=== PATIENT | male | born 1950 | race Caucasian/White ===

== ENCOUNTER 2019-06-30 17:43 | Inpatient (IN) | payer MEDICARE ==
[~2019-06-30] VITALS: Ht 172.7 cm; Wt 83.5 kg
[~2019-06-30 17:43] MED LIST: ASPIR 8181 MG PO; CLARITIN10 MG PO; CYCLOBENZAPRINE5 MG PO; FLONASE16 GM NS; GLUCOPHAGE500 MG PO; HYDROCHLOROTHIA25 MG PO; JANUVIA50 MG PO; LIPITOR40 MG PO; LISINOPRIL10 MG PO; PEPCID40 MG PO; ULTRAM50 MG PO; XARELTO20 MG PO
[2019-06-30] MEDS ORDERED: ASPIRIN 81 MG CHEW TAB PO ONE (18:30)
[2019-06-30 18:35] LABS: BASOPHILS % 0.2 % (0.0-1.0); EOSINOPHILS # (AUTO) 0.1 (0.0-0.4); EOSINOPHILS % 1.2 % (0.0-6.0); HEMATOCRIT 32.7 % (38.2-49.6); HEMOGLOBIN 11.6 g/dL (14.0-18.0); LYMPHOCYTES # (AUTO) 1.9 (1.0-3.2); LYMPHOCYTES % 22.6 % (18.0-39.1); MEAN CORPUSCULAR HEMOGLOBIN 33.5 pg (28-32); MEAN CORPUSCULAR HGB CONC 35.5 g/dL (31-35); MEAN CORPUSCULAR VOLUME 94.5 fL (81-99); MONOCYTES # (AUTO) 0.7 (0.2-0.8); MONOCYTES % 7.9 % (4.4-11.3); NEUTROPHILS # (AUTO) 5.7 (2.1-6.9); NEUTROPHILS % 67.6 % (38.7-80.0); PLATELET COUNT 124 x10e3/uL (140-360); RED BLOOD COUNT 3.46 x10e6/uL (4.3-5.7); RED CELL DISTRIBUTION WIDTH 12.1 % (11.7-14.4)
--- NOTE | 2019-06-30 18:35 | Diagnostic Imaging Report ---
EXAMINATION: CHEST SINGLE (PORTABLE) INDICATION: CHEST PAIN COMPARISON: None FINDINGS: AP view TUBES and LINES: None. LUNGS: Lungs are well inflated. Left basilar scarring/atelectasis. There is no evidence of pneumonia or pulmonary edema. PLEURA: No pleural effusion or pneumothorax. HEART AND MEDIASTINUM: The cardiomediastinal silhouette is unremarkable. BONES AND SOFT TISSUES: No acute osseous lesion. Soft tissues are unremarkable. UPPER ABDOMEN: No free air under the diaphragm. IMPRESSION: Left basilar scarring/atelectasis otherwise no acute thoracic radiographic abnormality. Signed by: Carlyle Darling DO on 06/30/2019 6:31 PM
[2019-06-30 18:48] LABS: INR 1.77; PROTHROMBIN TIME 21.3 seconds (11.9-14.5)
[2019-06-30 18:56] LABS: ALANINE AMINOTRANSFERASE 10 IU/L (0-55); ALBUMIN/GLOBULIN RATIO 1.2 (0.8-2.0); ALKALINE PHOSPHATASE 46 IU/L (40-150); ANION GAP 10.2 mmol/L (8-16); BLOOD UREA NITROGEN 65 mg/dL (7-26); BUN/CREATININE RATIO 56 (6-25); CALCIUM 8.6 mg/dL (8.4-10.2); CARBON DIOXIDE 23 mmol/L (22-29); CHLORIDE 109 mmol/L (98-107); CREATINE KINASE 22 IU/L (30-200); CREATININE, SERUM 1.16 mg/dL (0.72-1.25); EST GLOMERULAR FILTRATION RATE > 60 ML/MIN (60-); GLUCOSE 147 mg/dL (74-118); POTASSIUM 4.2 mmol/L (3.5-5.1); SODIUM 138 mmol/L (136-145)
[2019-06-30] MEDS ORDERED: ONDANSETRON HCL INJ 2MG/ML 2ML 2 MG/ML VIAL IV PRN (19:15)
--- NOTE | 2019-06-30 19:20 | NUR ---
Patient received via wheelchair from ER. Admission history obtained. Initial physical assessment conducted. Patient had no complaints of pain. No signs of respiratory distress. Patient oriented to room, call light and plan of care. Fall precautions implemented. Patient instructed to call for assistance when needed. Call light within reach.
--- OUTSIDE RECORDS SUMMARY | 2019-06-30 20:02 | XMS REPORT ---
Author Author [facility] Address Unknown Phone Unavailable Care Team Providers Care In Class Special Education Teacher Name Role Phone DORIAN JAYSON Unavailable Unavailable Problems This patient has no known problems. Allergies, Adverse Reactions, Alerts This patient has no known allergies or adverse reactions. Medications This patient has no known medications. Results Test Description Test Time Test Comments Text Results Atomic Results Result Comments CHEST SINGLE (PORTABLE) 2019-06-30 18:31:00 [place] [address] Patient Name: ARAMIS SHAW MR #: [id number] : 1950 Age/Sex: 68/M Req #: [id number] Adm Physician: Ordered by: JAYSON ALARCON DO Report #: [id number] Location: ER Room/Bed: Procedure: [id number] DX/CHEST SINGLE (PORTABLE) Exam Date: 06/30/19 Exam Time: 1820 REPORT STATUS: Signed EXAMINATION: CHEST SINGLE (PORTABLE) INDIC ATION: CHEST PAIN COMPARISON: None FINDINGS: AP view TUBES and LINES: None. LUNGS: Lungs are well inflated. Left basilar scarring/atelectasis. There is no evidence of pneumonia or pulmonary edema. PLEURA: No pleural effusion or pneumothorax. HEART AND MEDIASTINUM: The cardiomediastinal silhouette is unremarkable. BONES AND SOFT TISSUES: No acute osseous lesion. Soft tissues are unremarkable. UPPER ABDOMEN: No free air under the diaphragm. IMPRESSION: Left basilar scarring/atelectasis otherwise no acute thoracic radiographic abnormality. Signed by: Carlyle Darling DO on 06/30/2019 6:31 PM Dictated By: CARLYLE DARLING DO 30 Transcribed By: BHANU on 06/30/191830 COPY TO: JAYSON ALARCON DO
--- NOTE | 2019-06-30 20:19 | NUR ---
REPORT CALLED. PT TRANSFERRED VIA WC BY NURSE TO ROOM 206 ON TELE #23. PT RUNNING A FIB.
[2019-06-30 20:45] VITALS: BP 110/63
[2019-06-30 21:00] VITALS: BP 110/63
[2019-06-30 21:30] VITALS: BP 110/63
--- NOTE | 2019-06-30 21:39 | NUR ---
Dr. Rae Slainas paged for "Routine Consult". Reason: Chest Pain. Awaiting call back.
[2019-07-01] VITALS (9 sets, daily range): BP systolic 95–116; BP diastolic 57–72
--- NOTE | 2019-07-01 00:34 | NUR ---
Blood specimen sent to lab for analysis of cardiac enzymes.
[2019-07-01 03:36] LABS: CREATINE KINASE MB 1.1 ng/mL (0-5.0)
--- NOTE | 2019-07-01 07:10 | NUR ---
Shift report given to oncoming nurse.
[2019-07-01] MEDS ORDERED: METOPROLOL SUCC25 MG PO (11:06)
[2019-07-01 11:56] LABS: CREATINE KINASE MB 1.4 ng/mL (0-5.0)
--- NOTE | 2019-07-01 12:41 | NUR ---
H&P cc: chest pain HPI: 68yoM, PCP Dr.T. Brown, developed CP on left. Mild dizziness; no sob; last stres test about 5 years ago; smokes 1ppd cigs. PMH: PAF, DM2, HTN, HLD, nicotine dependence, peripherla edema PSHx: none Allergies; see emr Fh/Sh; marrie;d 1ppd cigs; meds; see MAR ROS: no f/c/s/N/V/D/BERGER/vision changes/back pain/skin rash v/s; revd PE tired a ppearing anicteric ns1s2 good bs soft nd; epigastric tenderness no e/t; hyperpigmentation of forelegs skin dry n. affect Nontender chest wall labs/meds; revd A/P: Atypical CP PAF HTN HLD NIcotine dependence PLAN Trend enzymes; check lipids; control BP hba1c/lipids Cont aceI and BB cont xarelto. pepcid dispo: f/u stress test. Chetan Briceño MD, PhD.
[2019-07-01] MEDS ORDERED: TRAMADOL HCL 50 MG TAB PO PRN (12:45)
[2019-07-01 13:22] LABS: CHOL/HDL RATIO 5.8 (3.9-4.7)
[2019-07-01] MEDS ORDERED: NON-FORMULARY MEDICATION (Cyclobenzaprine Hcl (Flexeril) 10 MG) PO SCH (14:00)
[2019-07-01] MEDS: CYCLOBENZAPRINE HCL 10 MG TAB PO SCH ×2 (15:26→22:00)
[2019-07-01] MEDS: RIVAROXABAN 20 MG TABLET PO SCH (18:24)
[2019-07-01] MEDS: METOPROLOL SUCCINATE 25 MG TAB XL PO SCH (18:24)
--- NOTE | 2019-07-01 19:22 | NUR ---
Patient received lying in bed. AAO x 3. No acute distress noted. Call light within reach.
[2019-07-01] MEDS ORDERED: NON-FORMULARY MEDICATION (Atorvastatin Calcium (Lipitor) 40 MG) PO SCH (21:00)
[2019-07-01] MEDS: INSULIN REGULAR, HUMAN 100 UNIT/1 ML 3ML VIAL SQ SCH (21:00)
--- NOTE | 2019-07-01 21:20 | NUR ---
Dr. Briceño paged for insulin sliding scale as patient is a diabetic. New order received for low dose sliding scale (regular insulin).
[2019-07-01] MEDS: ATORVASTATIN 40 MG TAB PO SCH (21:26)
[2019-07-01] MEDS ORDERED: DEXTROSE 50% SYRINGE 50 ML IV PRN (21:30)
[2019-07-02] VITALS (8 sets, daily range): BP systolic 92–143; BP diastolic 53–84
[2019-07-02] MEDS: CYCLOBENZAPRINE HCL 10 MG TAB PO SCH ×3 (05:19→22:13)
--- NOTE | 2019-07-02 07:00 | NUR ---
Walking rounds done. Shift report given to oncoming nurse.
--- NOTE | 2019-07-02 07:26 | NUR ---
IM-progress note O/N no events ROS: no f/c/s/N/V/D/BERGER/vision changes/back pain/skin rash v/s; revd PE tired a ppearing anicteric ns1s2 good bs soft nd; epigastric tenderness no e/t; hyperpigmentation of forelegs skin dry n. affect Nontender chest wall labs/meds; revd A/P: Atypical CP PAF HTN HLD NIcotine dependence PLAN Trend enzymes; check lipids; control BP hba1c/lipids Cont aceI and BB cont xarelto. pepcid dispo: f/u stress test. 07/02/19 Obesity- screen for DM positive, Hba1c/LDL 7.4/68. f/u stress test. Chetan Briceño MD, PhD.
[2019-07-02] MEDS: INSULIN REGULAR, HUMAN 100 UNIT/1 ML 3ML VIAL SQ SCH ×4 (07:30→22:12)
[2019-07-02] MEDS: SITAGLIPTIN 100 MG TAB PO SCH (09:00)
[2019-07-02] MEDS: HYDROCHLOROTHIAZIDE 25 MG TAB PO SCH (09:00)
[2019-07-02] MEDS: LORATADINE 10 MG TAB PO SCH (09:00)
[2019-07-02] MEDS: LISINOPRIL 10 MG TAB PO SCH (09:00)
[2019-07-02] MEDS: ASPIRIN 81 MG CHEW TAB PO SCH (09:00)
[2019-07-02] MEDS: METOPROLOL SUCCINATE 25 MG TAB XL PO SCH ×2 (09:00→16:45)
[2019-07-02] MEDS ORDERED: NON-FORMULARY MEDICATION (Sitagliptin Phosphate (Januvia) 50 MG) PO SCH (09:00)
[2019-07-02] MEDS ORDERED: REGADENOSON 0.4 MG/5 ML SYR IV ONE (09:17)
--- NOTE | 2019-07-02 10:30 | NUR ---
patient alert and oriented. leaving unit via wheelchair to nuclear medicine for stress test at this time.
[2019-07-02] MEDS: RIVAROXABAN 20 MG TABLET PO SCH (16:45)
--- NOTE | 2019-07-02 16:45 | NUR ---
Message left for Dr. Haynes regarding stress test results. Awaiting response.
[2019-07-02] MEDS: ATORVASTATIN 40 MG TAB PO SCH (20:18)
[2019-07-03] VITALS (7 sets, daily range): BP systolic 89–198; BP diastolic 51–80
[2019-07-03] MEDS: CYCLOBENZAPRINE HCL 10 MG TAB PO SCH ×4 (06:10→22:00)
--- NOTE | 2019-07-03 06:40 | NUR ---
walking rounds made with maintenance technician 2nd shift nurse, patient resting comfortably and in no distress. call zhong within reach and bed in lowest position.
[2019-07-03] MEDS: INSULIN REGULAR, HUMAN 100 UNIT/1 ML 3ML VIAL SQ SCH ×4 (07:30→21:00)
[2019-07-03] MEDS: HYDROCHLOROTHIAZIDE 25 MG TAB PO SCH (09:00)
[2019-07-03] MEDS: LORATADINE 10 MG TAB PO SCH (09:00)
[2019-07-03] MEDS: SITAGLIPTIN 100 MG TAB PO SCH (09:00)
[2019-07-03] MEDS: LISINOPRIL 10 MG TAB PO SCH (09:00)
[2019-07-03] MEDS: ASPIRIN 81 MG CHEW TAB PO SCH (09:00)
[2019-07-03] MEDS: METOPROLOL SUCCINATE 25 MG TAB XL PO SCH ×2 (09:00→16:56)
[2019-07-03] MEDS ORDERED: ONDANSETRON HCL 4 MG ORAL DISINTEGRATING TAB PO PRN (10:15)
[2019-07-03] MEDS: RIVAROXABAN 20 MG TABLET PO SCH (16:18)
--- NOTE | 2019-07-03 18:59 | NUR ---
Walking rounds done. Patient sitting up in bed in NAD. He denies CP or SOB. POC discussed. He was reminded he will be NPO after midnight for planned procedure. Patient instructed to call for assistance as needed and verbalized understanding. Call zhong within reach
[2019-07-03] MEDS: ATORVASTATIN 40 MG TAB PO SCH (21:45)
[2019-07-04] VITALS (61 sets, daily range): BP systolic 88–131; BP diastolic 50–96
--- NOTE | 2019-07-04 00:21 | Consultation ---
DATE OF CONSULTATION: Cardiology Consultation REASON FOR CONSULTATION: Chest pain. HISTORY OF PRESENT ILLNESS: This is a 68-year-old man with a history of hypertension, hyperlipidemia, diabetes mellitus, and paroxysmal atrial fibrillation, who presented to the emergency department with chest pain. The patient describes a central chest pain with moderate in intensity, occurred at rest, mildly worsened with exertion. No radiation, no diaphoresis associated with some mild shortness of breath. No other exacerbating or relieving factors. He states he has had a cardiac catheterization many years ago with possible balloon angioplasty. No balloon angioplasty. No recent stenting. Upon arrival here, he was noted to have negative cardiac enzymes and underwent stress testing which showed inferolateral scar with borderzone ischemia. REVIEW OF SYSTEMS: A 12-point review of system was conducted, is negative otherwise stated above in the HPI. PAST MEDICAL HISTORY: As stated above in the HPI. PAST SURGICAL HISTORY: None. Recent cardiac catheterization in remote past. PAST FAMILY HISTORY: Noncontributory. SOCIAL HISTORY: No current illicit drug, alcohol, or tobacco use. ALLERGIES: NO KNOWN DRUG ALLERGIES. MEDICATIONS: See medications reconciliation form. PHYSICAL EXAMINATION: VITAL SIGNS: Temperature is 96.9, heart rate is 81, respirations are 18, blood pressure is 107/62, and oxygen saturation 99% on room air. GENERAL: He is an elderly male seated at bedside in no apparent distress. HEAD: Normocephalic and atraumatic. EYES: Extraocular muscles are intact. Conjunctivae are clear. NECK: No JVD. No bruits. CARDIOVASCULAR: Regular rate and rhythm. No murmurs. LUNGS: Clear to auscultation. ABDOMEN: Soft, nontender, and nondistended. EXTREMITIES: No clubbing, cyanosis, or edema. VASCULAR: Diminished pulses. SKIN: Warm and dry. NEUROLOGIC: No focal deficits noted. LABORATORY DATA: Reviewed. Negative cardiac troponins. Nuclear stress test showed inferolateral scar with worsened ischemia. Echocardiogram showed a low-normal ejection fraction of 50% to 55%, however, it was technically difficult. A 12-lead electrocardiogram showed normal sinus rhythm with inferior and lateral T-wave inversions. IMPRESSION: 1. Abnormal stress test. 2. Abnormal electrocardiogram. 3. Hypertension. 4. Hyperlipidemia. 5. Diabetes mellitus. 6. Peripheral artery disease. 7. Venous stasis dermatitis. RECOMMENDATIONS: The patient presented with chest pain, ruled out for acute myocardial infarction. His ejection fraction was low normal, estimated at 50% to 55%. Nuclear stress test showed inferolateral scar with mild borderzone ischemia. Continue current cardiovascular medications. He will need coronary angiography with possible intervention. Risks, benefits, and alternatives, including that we had no bypass surgery here on site were discussed and he agrees to proceed with the procedure. DO ANN MARIE Gallardo/FELICIA /[id number]
--- NOTE | 2019-07-04 01:34 | NUR ---
therapy technician reported patient's heart rate in 40's. Upon checking on the patient, he was in bed looked pale, diaphoretic and c/o dizziness. patient stated, he had just came back from the bathroom. Patient's tele showing a heart rate ranging from 41-35, BP 81/47. Rapid response called at 0135. ER physician, patient registration supervisor, ICU charge in room. O2 2L NC, and external pacers placed. ordered EKG, to draw labs, NS@150cc/hr x1 liter. Patient remained awake, alert and talkative with staff. 0147- EKG sent to Dr. Haynes by Dr. Roberts. 0148 Dr Roberts spoke to Dr. Gonzales. 0150 BP 135/57, 93 heart rate. Patient is no longer pale or diaphoretic and states he feels better. Patient will keep pacer pads on. Will continue to monitor.
[2019-07-04] MEDS ORDERED: SODIUM CHLORIDE 0.9% 1000ML 1,000 ML ONE ×3 (01:45→14:50)
[2019-07-04 02:08] LABS: BASOPHILS % 0.3 % (0.0-1.0); EOSINOPHILS # (AUTO) 0.2 (0.0-0.4); EOSINOPHILS % 1.9 % (0.0-6.0); HEMATOCRIT 26.3 % (38.2-49.6); HEMOGLOBIN 9.4 g/dL (14.0-18.0); LYMPHOCYTES # (AUTO) 3.2 (1.0-3.2); MEAN CORPUSCULAR HEMOGLOBIN 33.7 pg (28-32); MEAN CORPUSCULAR HGB CONC 35.7 g/dL (31-35); MEAN CORPUSCULAR VOLUME 94.3 fL (81-99); MONOCYTES # (AUTO) 0.7 (0.2-0.8); MONOCYTES % 6.8 % (4.4-11.3); NEUTROPHILS # (AUTO) 5.5 (2.1-6.9); NEUTROPHILS % 57.7 % (38.7-80.0); PLATELET COUNT 155 x10e3/uL (140-360); RED BLOOD COUNT 2.79 x10e6/uL (4.3-5.7); RED CELL DISTRIBUTION WIDTH 12.2 % (11.7-14.4)
[2019-07-04 02:12] LABS: INR 1.18; PROTHROMBIN TIME 15.6 seconds (11.9-14.5)
[2019-07-04 02:13] LABS: PARTIAL THROMBOPLASTIN TIME 26.2 seconds (23.8-35.5)
[2019-07-04 02:20] LABS: ALBUMIN 3.1 g/dL (3.5-5.0); ALBUMIN/GLOBULIN RATIO 1.1 (0.8-2.0); ANION GAP 13.1 mmol/L (8-16); CREATININE, SERUM 1.37 mg/dL (0.72-1.25); POTASSIUM 4.1 mmol/L (3.5-5.1)
[2019-07-04 02:26] LABS: CREATINE KINASE MB 10.2 ng/mL (0-5.0)
--- NOTE | 2019-07-04 02:38 | NUR ---
Lab called regarding elevated troponin 1.832. Dr. Roberts notified. Called answering service for Dr. Haynes, Dr. Jerson Cherry hydro station supervisor but did not pickling drum operator and message left to update on patient
[2019-07-04] MEDS ORDERED: HEPARIN SOD (PORCINE) 5,000 UNIT/ML VIAL IV ONE (02:45)
[2019-07-04] MEDS ORDERED: HEPARIN 25,000 UNIT 900 UNIT in DEXTROSE 5% 250ML 250 ML IV SCH (02:45)
[2019-07-04] MEDS ORDERED: HEPARIN 25,000 UNIT DRIP IV ONE ×2 (03:13→14:50)
[2019-07-04] MEDS: HEPARIN 25,000 UNIT 1,000 UNIT in DEXTROSE 5% 250ML 250 ML IV SCH ×3 (03:20→18:26)
--- NOTE | 2019-07-04 03:20 | NUR ---
Heparin gtt started at 10cc/hr as ordered by and verified with ICU Charge nurse, JAMES Murcia. Patient denies SOB, CP, dizziness or any complaints. Will continue to monitor.
--- NOTE | 2019-07-04 04:00 | NUR ---
Patient is awake in bed without any complaints or distress. Call zhong within reach.
[2019-07-04] MEDS: CYCLOBENZAPRINE HCL 10 MG TAB PO SCH ×3 (04:41→21:08)
[2019-07-04 05:54] LABS: CREATINE KINASE MB 13.7 ng/mL (0-5.0)
--- NOTE | 2019-07-04 06:15 | NUR ---
Dr. Jerson Cherry paged to report elevated Troponin, no answer and message left. Patient without any complaints or distress. Call zhong within reach.
--- NOTE | 2019-07-04 07:03 | NUR ---
Dr. Cherry called back. He was updated on patient condition. Per MD patient needs to go to irrigation laborer with Heparin drip. AM nurse, JAMES Pittman aware. Walking rounds done and report given.
[2019-07-04] MEDS: INSULIN REGULAR, HUMAN 100 UNIT/1 ML 3ML VIAL SQ SCH ×4 (07:30→20:24)
[2019-07-04] MEDS ORDERED: HEPARIN SOD (PORCINE) 1000 UNIT/ML 30ML ONE (08:04)
[2019-07-04] MEDS ORDERED: LIDOCAINE HCL 2% LOCAL 20 ML VIAL ONE ×2 (08:04→10:10)
[2019-07-04] MEDS ORDERED: HEPARIN SOD/SOD CHLORIDE 2,000 ML ONE (08:04)
[2019-07-04] MEDS ORDERED: FENTANYL CITRATE/PF 100MCG/2 ML INJ ONE (08:04)
[2019-07-04] MEDS ORDERED: MIDAZOLAM HCL 2 MG/2 ML VIAL ONE ×2 (08:04→10:11)
[2019-07-04] MEDS ORDERED: IOPAMIDOL 370 MG/ML 200 ML INFUS..BTL INJ ONE (08:04)
[2019-07-04] MEDS ORDERED: NITROGLYCERIN/D5W 200 MCG/ML 250 ML ONE (08:05)
--- NOTE | 2019-07-04 08:59 | NUR ---
IM-progress note O/N no events ROS: no f/c/s/N/V/D/BERGER/vision changes/back pain/skin rash v/s; revd PE tired a ppearing anicteric ns1s2 good bs soft nd; epigastric tenderness no e/t; hyperpigmentation of forelegs skin dry n. affect Nontender chest wall labs/meds; revd A/P: Atypical CP PAF HTN HLD NIcotine dependence PLAN Trend enzymes; check lipids; control BP hba1c/lipids Cont aceI and BB cont xarelto. pepcid dispo: f/u stress test. 07/02/19 Obesity- screen for DM positive, Hba1c/LDL 7.4/68. f/u stress test. 07/03 abnormal stress test; f/u LHC 07/04 LHC= multi vs ds; IABP placed; monitor closely; cct>35mins. Chetan Briceño MD, PhD.
[2019-07-04] MEDS: SITAGLIPTIN 100 MG TAB PO SCH (09:00)
[2019-07-04] MEDS: ASPIRIN 81 MG CHEW TAB PO SCH (09:00)
[2019-07-04] MEDS: HYDROCHLOROTHIAZIDE 25 MG TAB PO SCH (09:00)
[2019-07-04] MEDS: LORATADINE 10 MG TAB PO SCH (09:00)
[2019-07-04] MEDS: METOPROLOL SUCCINATE 25 MG TAB XL PO SCH ×3 (09:00→18:29)
[2019-07-04] MEDS: LISINOPRIL 10 MG TAB PO SCH (09:00)
[2019-07-04] MEDS ORDERED: VERAPAMIL HCL 2.5 MG/ML 2 ML VIAL ONE (09:16)
[2019-07-04] MEDS ORDERED: ATROPINE SULFATE 0.1 MG/ML 10ML SYR ONE (09:38)
[2019-07-04] MEDS ORDERED: HEPARIN SOD/SOD CHLORIDE 1,000 ML ONE (10:07)
--- NOTE | 2019-07-04 12:00 | NUR ---
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 Donnie RAMIREZ bedside nurse in attendance. She phoned status report to ICU staff. Balloon remains in rt groin NO gross issues pain,pallor,pressure. 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 Site w/o s/s infiltration. Rt ballon in rt leg mobilizer. Pt was transfered to Icu [id number] in attendance an Z[facility]. Handoff completed by Donnie RAMIREZ. Patient back to baseline orientation. Remain variable Atrial fib. Voided x1 and has no c/o discomfort. Family and [facility] floor staff notified of transfer.mendez/james
[2019-07-04 14:54] LABS: CREATINE KINASE MB 18.7 ng/mL (0-5.0)
--- NOTE | 2019-07-04 16:27 | Operative Report ---
DATE OF PROCEDURE: SURGEON: Casey Haynes DO PROCEDURES PERFORMED: 1. Conscious sedation 60 minutes. 2. Selective coronary angiography x3. 3. Ultrasound-guided arterial access. 4. Ultrasound-guided venous access. 5. Insertion of an intra-aortic balloon pump. 6. Insertion of a central venous catheter. PREPROCEDURE DIAGNOSES: 1. Abnormal stress test. 2. Atrial fibrillation with slow ventricular response. POSTPROCEDURE DIAGNOSES: 1. Multivessel coronary artery disease. 2. Hypotension. 3. Bradycardia. ESTIMATED BLOOD LOSS: Less than 20 mL. SPECIMENS REMOVED: None. PROCEDURE IN DETAIL: After informed consent was obtained, the patient was brought to the cardiac catheterization laboratory in a fasting and nonsedated state. Bilateral groins and right wrist were prepped and draped in usual sterile fashion. A 2% lidocaine was instilled into the right wrist for local anesthesia. Using a micropuncture needle, the right radial artery was accessed via the modified Seldinger technique and a 5-6 slender sheath was placed. Next, diagnostic coronary angiography x3 was performed using a TIG catheter. This was subsequently removed over the wire. Hemostasis was achieved via TR band. The patient became bradycardic and hypotensive throughout the procedure, requiring atropine and dopamine infusion. Next, using ultrasound guidance, I gained access into the right common femoral artery and inserted a 50 mL intra-aortic balloon pump and was started on one-to-one counterpulsation. Next, using ultrasound guidance, I placed a central venous catheter in the right internal jugular vein. The patient tolerated the procedure well with no immediate complications, transferred back to the Intensive Care Unit in guarded condition. PROCEDURAL FINDINGS: 1. The ostial left main is patent. The left main then tapers down to a diffuse long 60% stenosis extending into the proximal left anterior descending coronary artery. There is a large first diagonal branch with luminal irregularities. The midportion of the LAD has a severe 90% stenosis with LALITHA-2 flow in the LAD. 2. 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 This vessel is the dominant vessel and provides a left posterior descending coronary artery. This also provides 4 other obtuse marginal vessels, the first of which is a medium caliber vessel. The first obtuse marginal has an ostial subtotal stenosis. Obtuse marginals 2 through 4 are small with luminal irregularities. The left circumflex itself has a subtotal severe stenosis at the takeoff of the first OM. 3. The right coronary artery is a small nondominant vessel and is occluded. The distal portion of the vessel fills via collaterals from the left anterior descending coronary artery system. IMPRESSION: 1. Hypotension. 2. Bradycardia. 3. Multivessel coronary artery disease. 4. Anomalous left circumflex coronary artery. RECOMMENDATIONS: The patient was placed on intra-aortic balloon pump counterpulsation for pressure support with a dopamine infusion. He was found to have severe multivessel coronary artery disease and will be referred for bypass surgery after transfer to the [facility]. DO ANN MARIE Gallardo/MODL /[id number]
--- NOTE | 2019-07-04 16:48 | NUR ---
Received order to initiate transfer to [facility]. Spoke with pt and at bedside. They signed choice letter for [facility]. Signed letter placed on chart. CM called and spoke with Claudette at transfer center to initiate process. Facesheet and H&P faxed to [phone] as requested. Gave CM contact information and ICU's phone number. MOT initiated and placed in front of chart.
[2019-07-04] MEDS: RIVAROXABAN 20 MG TABLET PO SCH (18:13)
--- NOTE | 2019-07-04 18:21 | Progress Note ---
DATE: Cardiology Progress Note SUBJECTIVE: The patient developed near-syncope and bradycardia yesterday evening. Rapid response was called. States that he was dizzy, lightheaded, felt unwell. The patient is currently status post heart catheterization with an intra-aortic balloon pump placed. OBJECTIVE: VITAL SIGNS: Temperature is afebrile, heart rate is 91, respirations are 13, blood pressure is 119/84, oxygen saturation 98% on room air. GENERAL: He is a chronically ill-appearing elderly man, lying comfortably in bed. CARDIOVASCULAR: Irregularly irregular. Normal rate. LUNGS: Diminished breath sounds at bases. ABDOMEN: Soft, nontender, nondistended. Groin has a balloon pump present. EXTREMITIES: Venous stasis dermatitis, diminished pulses. CARDIOVASCULAR MEDICATIONS: Reviewed. He is on dobutamine infusion. LABORATORY DATA: Creatinine is 1.37. TELEMETRY: Monitoring revealed atrial fibrillation with bradycardia. IMPRESSION: 1. Multivessel coronary artery disease. 2. Atrial fibrillation. 3. Hypertension. 4. Hyperlipidemia. 5. Diabetes mellitus. 6. Peripheral artery disease. 7. Venous stasis dermatitis. 8. Hypotension. RECOMMENDATIONS: The patient was found to have severe multivessel coronary artery disease. The patient was hypotensive with bradycardia during the procedure. He was started on dopamine and intra-aortic balloon pump was placed. We will reinitiate the heparin once this TR band is removed. Monitor in intensive care unit. The patient will need transfer to the [facility] for possible bypass surgery. DO ANN MARIE Gallardo/MODL /[id number]
[2019-07-04] MEDS: ATORVASTATIN 40 MG TAB PO SCH (20:26)
[2019-07-04] MEDS: MORPHINE SULFATE 2 MG/ML SYR 1ML IV PRN (22:48)
[2019-07-05] VITALS (61 sets, daily range): BP systolic 99–144; BP diastolic 69–112
[2019-07-05] MEDS ORDERED: SODIUM CHLORIDE 0.9% 1000ML 1,000 ML ONE (00:57)
[2019-07-05] MEDS ORDERED: SODIUM CHLORIDE 0.9% 1000ML 1,000 ML IV SCH (01:00)
[2019-07-05 02:22] LABS: BASOPHILS % 0.1 % (0.0-1.0); EOSINOPHILS # (AUTO) 0.1 (0.0-0.4); EOSINOPHILS % 1.5 % (0.0-6.0); HEMATOCRIT 23.9 % (38.2-49.6); HEMOGLOBIN 8.3 g/dL (14.0-18.0); LYMPHOCYTES # (AUTO) 1.7 (1.0-3.2); LYMPHOCYTES % 19.3 % (18.0-39.1); MEAN CORPUSCULAR HEMOGLOBIN 33.1 pg (28-32); MEAN CORPUSCULAR HGB CONC 34.7 g/dL (31-35); MEAN CORPUSCULAR VOLUME 95.2 fL (81-99); MONOCYTES # (AUTO) 0.7 (0.2-0.8); MONOCYTES % 7.7 % (4.4-11.3); NEUTROPHILS # (AUTO) 6.3 (2.1-6.9); NEUTROPHILS % 71.1 % (38.7-80.0); PLATELET COUNT 99 x10e3/uL (140-360); RED BLOOD COUNT 2.51 x10e6/uL (4.3-5.7); RED CELL DISTRIBUTION WIDTH 12.6 % (11.7-14.4)
[2019-07-05 02:55] LABS: CREATINE KINASE MB 19.2 ng/mL (0-5.0)
[2019-07-05] MEDS: MORPHINE SULFATE 2 MG/ML SYR 1ML IV PRN (03:09)
[2019-07-05 03:11] LABS: ALANINE AMINOTRANSFERASE 12 IU/L (0-55); ALBUMIN/GLOBULIN RATIO 1.2 (0.8-2.0); ALKALINE PHOSPHATASE 40 IU/L (40-150); ANION GAP 9.2 mmol/L (8-16); BLOOD UREA NITROGEN 27 mg/dL (7-26); BUN/CREATININE RATIO 24 (6-25); CALCIUM 8.6 mg/dL (8.4-10.2); CARBON DIOXIDE 26 mmol/L (22-29); CHLORIDE 104 mmol/L (98-107); CREATININE, SERUM 1.11 mg/dL (0.72-1.25); EST GLOMERULAR FILTRATION RATE > 60 ML/MIN (60-); GLUCOSE 121 mg/dL (74-118); MAGNESIUM 1.9 MG/DL (1.3-2.1); PHOSPHORUS 3.7 MG/DL (2.3-4.7); POTASSIUM 4.2 mmol/L (3.5-5.1); SODIUM 135 mmol/L (136-145)
[2019-07-05] MEDS: HEPARIN 25,000 UNIT 1,000 UNIT in DEXTROSE 5% 250ML 250 ML IV SCH (05:02)
[2019-07-05] MEDS: CYCLOBENZAPRINE HCL 10 MG TAB PO SCH ×2 (06:08→13:39)
--- NOTE | 2019-07-05 06:53 | NUR ---
IM-progress note O/N no events ROS: no f/c/s/N/V/D/BERGER/vision changes/back pain/skin rash v/s; revd PE tired a ppearing anicteric ns1s2 good bs soft nd; epigastric tenderness no e/t; hyperpigmentation of forelegs skin dry n. affect Nontender chest wall labs/meds; revd A/P: Atypical CP PAF HTN HLD NIcotine dependence PLAN Trend enzymes; check lipids; control BP hba1c/lipids Cont aceI and BB cont xarelto. pepcid dispo: f/u stress test. 07/02/19 Obesity- screen for DM positive, Hba1c/LDL 7.4/68. f/u stress test. 07/03 abnormal stress test; f/u LHC 07/04 LHC= multi vs ds; IABP placed; monitor closely; cct>35mins. 10-3 transfer pending; d/c once bed available in med ctr. Chetan Briceño MD, PhD.
[2019-07-05] MEDS: INSULIN REGULAR, HUMAN 100 UNIT/1 ML 3ML VIAL SQ SCH ×2 (08:00→12:00)
[2019-07-05] MEDS: METOPROLOL SUCCINATE 25 MG TAB XL PO SCH (08:20)
[2019-07-05] MEDS: ASPIRIN 81 MG CHEW TAB PO SCH (08:20)
[2019-07-05] MEDS: SITAGLIPTIN 100 MG TAB PO SCH (08:20)
[2019-07-05] MEDS: HYDROCHLOROTHIAZIDE 25 MG TAB PO SCH (08:20)
[2019-07-05] MEDS: LORATADINE 10 MG TAB PO SCH (08:20)
[2019-07-05] MEDS ORDERED: HEPARIN 25,000 UNIT DRIP IV ONE (08:55)
[2019-07-05] MEDS: LISINOPRIL 10 MG TAB PO SCH (09:00)
--- NOTE | 2019-07-05 10:09 | NUR ---
Spoke with Moni at transfer center. States they are pending bed availability.
--- NOTE | 2019-07-05 12:31 | NUR ---
Received call from Sandra Snowden at transfer center with MOT [facility] [address] [place] [address] Room: CCU2 Bed 18 Accepting MD: Dr. Gary Cartagena Accepting middleware administrator: Sandra Snowden RN senior energy market coordinator Nurse call report to: [phone] THE FOLLOWING DOCUMENTS MUST ACCOMPANY PATIENT FOR TRANSFER: copy of chart COPIED CHART: bedside RN PHYSICIANS ORDER/RECONCILED MED LIST: to be obtained by bedside RN [id number] DNR: n/a MOT filled and given to jeannette Syedstorage facility housekeeper. Completed MOT to be faxed to [phone] JAMES Paredes was notified of MOT.
== END 2019-07-05 14:55 | disposition short-term general hospital (02) | DRG 272 ==
LOC: ER 17:43 → ERHOLD 19:59 → MED/SURG2 20:01 → IMCU 07-03 12:57 → OBSVTOIN 07-03 16:08 → ICU 07-04 12:54
PROVIDERS: ADMIT Internal Medicine; ATTEND Internal Medicine
PROC: B2111ZZ Fluoroscopy of Multiple Coronary Arteries using Low Osmolar Contrast (ICD-10-PCS; principal; 2019-07-04)
PROC: 5A02210 Assistance with Cardiac Output using Balloon Pump, Continuous (ICD-10-PCS; 2019-07-04)
PROC: 02HV33Z Insertion of Infusion Device into Superior Vena Cava, Percutaneous Approach (ICD-10-PCS; 2019-07-04)
DX: I25.119 Atherosclerotic heart disease of native coronary artery with unspecified angina pectoris (principal); I48.0 Paroxysmal atrial fibrillation; Z79.01 Long term (current) use of anticoagulants; F17.210 Nicotine dependence, cigarettes, uncomplicated; E78.5 Hyperlipidemia, unspecified; I87.2 Venous insufficiency (chronic) (peripheral); E11.40 Type 2 diabetes mellitus with diabetic neuropathy, unspecified; E11.51 Type 2 diabetes mellitus with diabetic peripheral angiopathy without gangrene; Z79.4 Long term (current) use of insulin; R94.39 Abnormal result of other cardiovascular function study
CPT/HCPCS: 33970; 36415; 71045; 78452; 80053; 80061; 82550; 82553; 82948; 83036; 83735; 83880; 84100; 84484; 85025; 85379; 85610; 85730; 93005; 93017; 93306; 93454; 99284; A9502; C1751; C1766; C1769; C1887; G0378; J1644; J1817; J2001; J2250; J2270; J3010; J7030; Q9967